=== PATIENT | female | born 1935 | race Caucasian/White ===

== ENCOUNTER 2017-04-10 02:10 | Observation (INO) ==
[2017-04-10] MEDS ORDERED: *HR* Promethazine 25 MG/ML VIAL IVP PRN (05:24)
[2017-04-10] MEDS ORDERED: Ondansetron 4 MG/2 ML VIAL IVP PRN (05:24)
[2017-04-10] MEDS ORDERED: MOM Conc 10 ML UD.LIQ PO PRN (05:24)
[2017-04-10] MEDS ORDERED: Naloxone 0.4 MG/ML INJ IVP PRN (05:24)
[2017-04-10] MEDS ORDERED: *HR* HYDROcodone/Acet 5/325 mg TABLET PO PRN (05:24)
[2017-04-10] MEDS ORDERED: Acetaminophen 325 MG TABLET PO PRN (05:24)
--- NOTE | 2017-04-10 05:38 | Internal Med History&Physical ---
Date of Encounter: 04/10/17 Time of Encounter: 05:00 Assessment and Plan (1) Chest pain Current visit: No Status: Acute will place the pt into Tele for observation reviewed EKG by myself..NSR, NO ST T changes, HR @ 68 So far negative trop will check serial trop Her CP seems to be atypical - mostly due to indigestion so will give her Prilosec however since pt is also high risk with all her previous cardiac history and family history will monitor her closely for next 24 hrs resumed home med ASA + Plavix + BB + ARBs Will give Nitro PRN Qualifiers: Chest pain type: unspecified Qualified Code(s): R07.9 - Chest pain, unspecified (2) Bronchopneumonia Current visit: No Status: Acute Reviewed CTA of chest results..showed bronchiolitis / pneumonia mostly bacterial she does have cough with yellowish expectoration will give her empirical abx Levaquin x 5 days Duoneb PRN (3) GERD (gastroesophageal reflux disease) Current visit: Yes Status: Acute started on PPI Qualifiers: Qualified Code(s): K21.9 - Gastro-esophageal reflux disease without esophagitis (4) CAD (coronary artery disease) Current visit: Yes Status: Chronic Resumed all home meds ASA + Plavix + Statin + B Vale + ARBs Qualifiers: Coronary Disease-Associated Artery/Lesion type: [place] artery [place] vs. transplanted heart: [place] heart Associated angina: without angina Qualified Code(s): I25.10 - Atherosclerotic heart disease of [place] coronary artery without angina pectoris (5) HTN (hypertension) Current visit: Yes Status: Acute Stable with home meds Qualifiers: Hypertension type: essential hypertension Qualified Code(s): I10 - Essential (primary) hypertension (6) HLD (hyperlipidemia) Current visit: Yes Status: Acute on statin Qualifiers: Hyperlipidemia type: unspecified Qualified Code(s): E78.5 - Hyperlipidemia , unspecified (7) Cholelithiasis Current visit: No Status: Chronic chronic.. No acute abdominal pain no further work up needed Qualifiers: Cholelithiasis location: gallbladder Cholecystitis presence: without cholecystitis Biliary obstruction: without biliary obstruction Qualified Code(s): K80.20 - Calculus of gallbladder without cholecystitis without obstruction Internal Medicine - H&P: HPI Chief complaint: Chest pain / Indigestion Admitted From: Emergency Dept Plans for Post Hospital Care: Home History of present illness: Ms. Jolley is a 81 year old female with known PMH of HTN, HLD, CAD s/p stents x 5, had normal LHC in 6 months ago who does f/u with [facility] Dr. Zhao as an out pt, now she presented to [facility] ER with some substernal and epigatsric discomfort , more like pressure and burning pain started last night. Her pain was 6/10 and non radiating. Pt denied any active chest pain now. She had CTA of Chest done in the ER which showed cluster of centrilobular nodules in the posterior aspect of Rt upper lobe suspicious for infectious bronchiolitis / broncho pneumonia. Past Med Surg Social Fam HX - Past Medical History Medical history: coronary artery disease, myocardial infarction Psychiatric history: no psych history - Past Surgical History Surgical History: , cataract - Social History Smoking Status: Never smoker Smokeless Tobacco Status: No Alcohol use: rarely Drug use: none - Family History Brother Living Status: Age at : 50 Cause of : [place] Hx Family Cardiac Disorders: Yes ([place]) Sister Living Status: Still Living Hx Family Cardiac Disorders: Yes Internal Medicine - H&P: Meds Aspirin 81 mg PO DAILY 11/11/15 [History] Carvedilol 6.25 mg PO BID 11/11/15 [History] Clopidogrel [Plavix] 75 mg PO DAILY 11/11/15 [History] Multivit-Min/Iron/Folic/Lutein [Centrum Silver Women Tablet] 1 tab PO DAILY 11/17 [History] Atorvastatin [Lipitor] 80 mg PO HS 04/09/17 [History] Isosorbide DInitrate [Isosorbide Dinitrate] 30 mg PO DAILY 04/09/17 [History] Losartan Potassium [Cozaar] 25 mg PO DAILY 04/09/17 [History] Magnesium Oxide [Magnesium] 400 mg PO DAILY 04/09/17 [History] 3 Allergy/AdvReac Type Severity Reaction Status Date / Time No Known Allergies Allergy Verified 11/11/15 08:23 All Systems PM: A 10-system review of systems was performed and is negative for pertinent findings except as documented above in the HPI. Review of systems: Reviewed all the systems, everything is benign except the systems and symptoms I mentioned in HPI - Constitutional Vitals: Temp Pulse Resp BP Pulse Ox 97.4 F L 64 14 178/84 97 04/10/17 04:33 04/10/17 04:33 04/10/17 04:33 04/10/17 04:33 04/10/17 04:33 General appearance: Present: A&O X 3, no acute distress, answers questions appropriately - Head Head exam: Present: atraumatic, normal inspection - Neck Neck exam general surgery: Present: supple - Respiratory Respiratory exam: Present: decreased breath sounds. Absent: rales, respiratory distress, rhonchi, wheezes - Cardiovascular Cardiovascular exam: Present: RRR, +S1, +S2. Absent: systolic murmur, tachycardia - GI/Abdominal GI/Abdominal exam: Present: normal bowel sounds, soft. Absent: rebound, rigid, tenderness - Extremities Exam Extremities exam: Absent: calf tenderness, pedal edema, tenderness - Back Exam Back exam: Absent: CVA tenderness (L), CVA tenderness (R) - Neurological Exam Neurological exam: Present: alert, oriented X3 - Psychiatric Psychiatric exam: Present: normal affect, normal mood
[2017-04-10 07:07] LABS: Chol/HDL Ratio 2.3 (0-4.9)
[2017-04-10] MEDS: Multivit/Ca/Min/Fe/FA 1 TAB TABLET PO SCH (09:24)
[2017-04-10] MEDS: Isosorbide MONOnitrate (24 HR) 30 MG TAB.ER.24H PO SCH (09:24)
[2017-04-10] MEDS: Levofloxacin 500 MG/100 ML 500 MG/100 ML BAG IVPB SCH (09:24)
[2017-04-10] MEDS: Aspirin 81 MG TAB.CHEW PO SCH (09:24)
[2017-04-10] MEDS: Magnesium Oxide 400 MG TABLET PO SCH (09:24)
[2017-04-10] MEDS: NABUMETONE TP PRN (15:40)
[2017-04-10] MEDS: LIDOCAINE TP PRN (15:40)
[2017-04-10] MEDS: GABAPENTIN TP PRN (15:40)
[2017-04-10] MEDS: PRILOCAINE TP PRN (15:40)
[2017-04-11 03:38] LABS: Hematocrit 35.6 % (35.3-44.9); Hemoglobin 11.6 g/dL (11.5-15.4); Mean Corpuscular HGB Conc 32.6 g/dL (31.6-35.5); Mean Corpuscular Hemoglobin 31.9 pg (28.0-33.3); Mean Corpuscular Volume 97.8 fL (83.0-100.0); Mean Platelet Volume 11.4 fL (9.4-12.4); Platelet Count 163 K/mcL (140-400); Red Blood Count 3.64 M/mcL (3.82-4.97); Red Cell Distribution Width 12.5 % (11.5-14.5)
[2017-04-11 03:58] LABS: BUN/Creatinine Ratio 18 (6-26); Blood Urea Nitrogen 18 mg/dL (8-23); Calcium 9.2 mg/dL (8.6-10.3); Carbon Dioxide 27 mEq/L (23-29); Chloride 107 mEq/L (98-107); Glucose 101 mg/dL (70-105); Magnesium 2.2 mg/dL (1.6-2.6); Osmolality,Calculated 292 (280-300); Potassium 4.3 mEq/L (3.5-5.1); Sodium 140 mEq/L (136-145); eGFR For African Americans > 60 (> 60); eGFR For Non-African Americans 54 (> 60)
[2017-04-11] MEDS: Multivit/Ca/Min/Fe/FA 1 TAB TABLET PO SCH (08:04)
[2017-04-11] MEDS: Isosorbide MONOnitrate (24 HR) 30 MG TAB.ER.24H PO SCH (08:04)
[2017-04-11] MEDS: Aspirin 81 MG TAB.CHEW PO SCH (08:04)
[2017-04-11] MEDS: Magnesium Oxide 400 MG TABLET PO SCH (08:04)
--- NOTE | 2017-04-11 11:44 | Cardiology Consult Note ---
Date of Encounter: 04/11/17 Time of Encounter: 11:44 Assessment and Plan (1) Chest pain Current Visit: Yes Status: Acute Atypical chest pain. Current work-up is negative. Trop negative x3. EKG shows NSR. Recommend proceeding with stress test as recommended in the out-pt setting. Last [facility] 2016 in [place] showed patent LAD stent and mRCA stent. There was a 40- 50% in- stent stenosis in the mRCA. TTE 03/07/16- EF 60%. No significant valvular disease. Low level stress ordered for am. Increase imdur. No medications after midnight. Qualifiers: Chest pain type: unspecified Qualified Code(s): R07.9 - Chest pain, unspecified (2) CAD (coronary artery disease) Current Visit: Yes Status: Chronic H/o 5 UT and previous PCI per patient. Continue asa, statin, bb, plavix, and imdur. Qualifiers: Coronary Disease-Associated Artery/Lesion type: [place] artery [place] vs. transplanted heart: tribal heart Associated angina: without angina Qualified Code(s): I25.10 - Atherosclerotic heart disease of tribal coronary artery without angina pectoris (3) PNA (pneumonia) Current Visit: Yes Status: Acute Hospitalist following. Started on levaquin. Qualifiers: Pneumonia type: due to unspecified organism Laterality: right Lung location: upper lobe of lung Qualified Code(s): J18.1 - Lobar pneumonia, unspecified organism Discussion w patient/family: The assessment and plan as outlined above was discussed with the patient and/or family members who expressed understanding and agreement. All questions were answered. Thank you for involving us in the care of your patient. Please call with any questions. History of Present Illness Consult date: 04/11/17 Requesting physician: Terrance Michel Consult reason: Chest pain Chief complaint: Chest pain History of present illness: Ms. Jolley is a 81 year old female with a past medical history of multiple UT , previous PCI, HLD, HTN, and takostubo CMP who presents with the c/o recurrent mid-epigastric pain and chest pain.She states that the pain is not like her previous UT but she has felt indigestion prior to a UT before. Symptoms occur at rest. Denies using her SL NTG spray at home. She was given 4 sprays in the ER with relief of her pain. She also c/o SOB and cough. C/o recent cold like symptoms during a recent travel to [place]. 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 She was waiting for stress test to be scheduled. Cardiac work-up included troponin found to be negative x3 and EKG shows NSR with no ST changes. CT of the chest showed changes suggesting bronchiolitis and PNA. SHe was started on levaquin. Past Med Surg Social Fam HX - Past Medical History Medical history: cardiomyopathy, coronary artery disease, myocardial infarction Psychiatric history: no psych history - Past Surgical History Surgical History: , cataract - Social History Smoking Status: Never smoker Smokeless Tobacco Status: No Alcohol use: rarely Drug use: none - Family History Brother Living Status: Age at : 50 Cause of : [place] Hx Family Cardiac Disorders: Yes ([place]) Sister Living Status: Still Living Hx Family Cardiac Disorders: Yes Medications and Allergies Aspirin 81 mg PO DAILY 11/11/15 [History] Carvedilol 6.25 mg PO BID 11/11/15 [History] Clopidogrel [Plavix] 75 mg PO DAILY 11/11/15 [History] Multivit-Min/Iron/Folic/Lutein [Centrum Silver Women Tablet] 1 tab PO DAILY 11/17 [History] Atorvastatin [Lipitor] 80 mg PO HS 04/09/17 [History] Isosorbide DInitrate [Isosorbide Dinitrate] 30 mg PO DAILY 04/09/17 [History] Losartan Potassium [Cozaar] 25 mg PO DAILY 04/09/17 [History] Magnesium Oxide [Magnesium] 400 mg PO DAILY 04/09/17 [History] Ferrous Sulfate [Ferrous Sulfate] 1 tab PO BID 04/10/17 [History] 3 Allergy/AdvReac Type Severity Reaction Status Date / Time No Known Allergies Allergy Verified 11/11/15 08:23 All Systems Review: A 10-system review of systems was performed and is negative for pertinent findings except as documented above in the HPI. Physical Examination Vital Signs, Last 4 Hours Pulse Ox 04/11/17 08:12 95 General: Conversant, No Apparent Distress HEENT: Atraumatic, Normocephaly, Mucus Membranes Moist Neck: No JVD, Normal carotid pulses Cardiac: Reg Rate and Rhythm, Normal S1 and S2, No Murmur Lungs: Normal Breath Sounds, No Wheeze, Rales, Rhonchi Neuro: Alert and responsive, No focal deficits noted Abdomen: Soft, Non-Tender Skin: No rashes noted on visualized skin Musculoskeletal: No Chest Wall Tenderness Extremities: No Clubbing, No Cyanosis, No Edema, Normal Pulses Results 04/11/17 03:11 04/11/17 03:11 Lab Results 04/10/17 04/11/17 04/11/17 11:18 03:11 03:11 WBC 5.4 Hgb 11.6 Hct 35.6 Plt Count 163 Sodium 140 Potassium 4.3 Chloride 107 Carbon Dioxide 27 BUN 18 Creatinine 0.99 Glucose 101 Calcium 9.2 Magnesium 2.2 Troponin I < 0.03 - Imaging and Cardiology Echo: report reviewed - EKG Interpretation EKG results cardiology: personally reviewed Consult Discharge Plan - Plan Referrals: Alton Atkins MD [Primary Care Provider] -
[2017-04-11] MEDS ORDERED: Isosorbide MONOnitrate (24 HR) 30 MG TAB.ER.24H PO ONE (12:10)
--- NOTE | 2017-04-11 12:28 | Internal Med Progress Note ---
Date of Encounter: 04/11/17 Time of Encounter: 09:55 - Assessment and plan (1) PNA (pneumonia) Current Visit: Yes Status: Suspected Assessment and plan: Pt with community acquired pneumonia found on CT. Relates a recent upper respiratory infection. Continue IV abx for now and anticipate d/c on PO Qualifiers: Pneumonia type: due to Pneumococcus Laterality: right Lung location: upper lobe of lung Qualified Code(s): J13 - Pneumonia due to Streptococcus pneumoniae (2) Chest pain Current Visit: Yes Status: Acute Assessment and plan: Pt with atypical chest pain. Has significant cardiac history and is concerned this is cardiac related. Will ask for inpatient cardiology consult today. Qualifiers: Chest pain type: other chest pain Qualified Code(s): R07.89 - Other chest pain; R07.8 - Other chest pain (3) HTN (hypertension) Current Visit: Yes Status: Chronic Assessment and plan: Continue home meds. Qualifiers: Hypertension type: essential hypertension Qualified Code(s): I10 - Essential (primary) hypertension (4) CAD (coronary artery disease) Current Visit: Yes Status: Chronic Assessment and plan: Chronic issue Qualifiers: Coronary Disease-Associated Artery/Lesion type: [place] artery [place] vs. transplanted heart: [place] heart Associated angina: without angina Qualified Code(s): I25.10 - Atherosclerotic heart disease of [place] coronary artery without angina pectoris (5) HLD (hyperlipidemia) Current Visit: Yes Status: Chronic Assessment and plan: Chronic issue Qualifiers: Hyperlipidemia type: mixed hyperlipidemia Qualified Code(s): E78.2 - Mixed hyperlipidemia (6) GERD (gastroesophageal reflux disease) Current Visit: Yes Status: Chronic Assessment and plan: Chronic issue Qualifiers: Esophagitis presence: without esophagitis Qualified Code(s): K21.9 - Gastro -esophageal reflux disease without esophagitis (7) Cholelithiasis without cholecystitis Current Visit: Yes Status: Chronic - Subjective Interval history: Ms Jolley is currently in observation for atypical chest pain and pneumonia. Ms Jolley has not had any further indigestion or chest discomfort. She is having some different sensation in L arm. No fever or chills. No dyspnea. - Constitutional Vitals: Temp Pulse Resp BP Pulse Ox 98.3 F 75 16 108/72 94 04/11/17 11:54 04/11/17 11:54 04/11/17 11:54 04/11/17 11:54 04/11/17 11:54 General appearance: Present: A&O X 3, answers questions appropriately - Head Head exam: Present: atraumatic, normocephalic - Eye Eye exam: Present: EOMI, conjuntiva pink - ENT ENT exam: Present: mucous membranes dry - Respiratory Respiratory exam: Present: CTAB. Absent: rales, rhonchi, wheezes - Cardiovascular Cardiovascular exam: Present: RRR. Absent: systolic murmur, tachycardia - GI/Abdominal GI/Abdominal exam: Present: soft. Absent: tenderness - Extremities Exam Extremities exam: Present: warm. Absent: tenderness - Neurological Exam Neurological exam: Present: alert, oriented X3, no focal deficits - Skin Skin exam: Present: dry, warm. Absent: rash Internal Medicine: Result - Labs CBC & Chem 7: 04/11/17 03:11 04/11/17 03:11 Labs: Short CBC 04/11/17 Range/Units 03:11 WBC 5.4 (4.3-11.1) K/mcL Hgb 11.6 (11.5-15.4) g/dL Hct 35.6 (35.3-44.9) % Plt Count 163 (140-400) K/mcL BMP 04/11/17 03:11 Sodium 140 Potassium 4.3 Chloride 107 Carbon Dioxide 27 BUN 18 Creatinine 0.99 Glucose 101 Calcium 9.2 Consult Discharge Plan - Plan Referrals: Alton Atkins MD [Primary Care Provider] -
[2017-04-11] MEDS: NABUMETONE TP PRN ×2 (13:41→20:36)
[2017-04-11] MEDS: PRILOCAINE TP PRN ×2 (13:41→20:36)
[2017-04-11] MEDS: GABAPENTIN TP PRN ×2 (13:41→20:36)
[2017-04-11] MEDS: LIDOCAINE TP PRN ×2 (13:41→20:36)
[2017-04-11] MEDS: *HR* Heparin 5,000 UNIT/ML VIAL SQ SCH (17:45)
[2017-04-11] MEDS: Nitroglycerin 0.4 MG TAB.SUBL SL PRN ×2 (23:38→23:47)
[2017-04-11] MEDS ORDERED: Mag Hydrox/Al Hydrox/Simeth 30 ML UDC PO ONE (23:54)
[2017-04-12] MEDS ORDERED: Nitroglycerin 1 INCH/GM PACKET TP PRN (00:05)
[2017-04-12] MEDS ORDERED: Regadenoson 0.4 MG/5 ML SYRINGE IVP ONE (06:24)
[2017-04-12] MEDS: *HR* Heparin 5,000 UNIT/ML VIAL SQ SCH (07:02)
[2017-04-12] MEDS: PRILOCAINE TP PRN (07:21)
[2017-04-12] MEDS: NABUMETONE TP PRN (07:21)
[2017-04-12] MEDS: GABAPENTIN TP PRN (07:21)
[2017-04-12] MEDS: LIDOCAINE TP PRN (07:21)
[2017-04-12] MEDS ORDERED: Isosorbide MONOnitrate (24 HR) 30 MG TAB.ER.24H PO SCH (09:00)
--- NOTE | 2017-04-12 10:10 | Electrocardiograph Report ---
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
[2017-04-12] MEDS: Levofloxacin 500 MG/100 ML 500 MG/100 ML BAG IVPB SCH (11:23)
[2017-04-12] MEDS: Multivit/Ca/Min/Fe/FA 1 TAB TABLET PO SCH (11:41)
[2017-04-12] MEDS: Magnesium Oxide 400 MG TABLET PO SCH (11:41)
[2017-04-12] MEDS: Aspirin 81 MG TAB.CHEW PO SCH (11:41)
[2017-04-12 14:33] VITALS: BP 109/67
--- NOTE | 2017-04-12 15:05 | Cardiology Progress Note ---
Date of Encounter: 04/12/17 Time of Encounter: 15:10 Assessment and Plan (1) Chest pain Current Visit: Yes Status: Resolved Atypical chest pain. Trop negative x3. EKG shows NSR. Last [facility] 2015 in [place] showed patent LAD stent and mRCA stent. There was a 40- 50% in- stent stenosis in the mRCA. TTE 03/07/16- EF 60%. No significant valvular disease. Stress test negative for ischemia or infarct, Imdur increased. Recommend PPI. Continue medical management. Out-pt f/u will be coordinated by [facility]. Qualifiers: Chest pain type: other chest pain Qualified Code(s): R07.89 - Other chest pain; R07.8 - Other chest pain (2) CAD (coronary artery disease) Current Visit: Yes Status: Chronic H/o 5 [place] and previous PCI per patient. Continue asa, statin, bb, plavix, and imdur. Qualifiers: Coronary Disease-Associated Artery/Lesion type: [place] artery [place] vs. transplanted heart: [place] heart Associated angina: without angina Qualified Code(s): I25.10 - Atherosclerotic heart disease of [place] coronary artery without angina pectoris (3) PNA (pneumonia) Current Visit: Yes Status: Suspected Hospitalist following. Started on levaquin. Qualifiers: Pneumonia type: due to Pneumococcus Laterality: right Lung location: upper lobe of lung Qualified Code(s): J13 - Pneumonia due to Streptococcus pneumoniae Discussion w patient/family: The assessment and plan as outlined above was discussed with the patient and/or family members who expressed understanding and agreement. All questions were answered. Thank you for involving us in the care of your patient. Please call with any questions. Subjective Principal diagnosis: Chest pain Interval history: No recurrent chest pain. Objective Vital Signs, Last 4 Hours Temp Pulse Resp BP Pulse Ox 04/12/17 14:32 97.8 F 79 16 109/67 97 04/12/17 11:26 98.0 F 73 16 127/83 98 General: Conversant, No Apparent Distress HEENT: Atraumatic, Normocephaly, Mucus Membranes Moist Neck: No JVD, Normal carotid pulses Cardiac: Reg Rate and Rhythm, Normal S1 and S2, No Murmur Lungs: Normal Breath Sounds, No Wheeze, Rales, Rhonchi Neuro: Alert and responsive, No focal deficits noted Abdomen: Soft, Non-Tender Skin: No rashes noted on visualized skin Musculoskeletal: No Chest Wall Tenderness Extremities: No Clubbing, No Cyanosis, No Edema, Normal Pulses Results 04/11/17 03:11 04/11/17 03:11 Lab Results 04/12/17 04/12/17 04/12/17 00:00 05:44 12:11 Troponin I < 0.03 < 0.03 < 0.03 - Imaging and Cardiology Stress Test: report reviewed - EKG Interpretation EKG results cardiology: personally reviewed Consult Discharge Plan - Plan Additional Instructions: Take medications as prescribed. Go to scheduled follow-up appointment. Go to ED if symptoms return. Activity as tolerated. Referrals: Alton Atkins MD [Primary Care Provider] - (Web request made, office will call you with appt) Prescriptions: Isosorbide MONOnitrate (24 HR) [Imdur] 60 mg PO DAILY #30 tab.er.24h levoFLOXacin [Levaquin] 500 mg PO DAILY #3 tablet
--- NOTE | 2017-04-12 15:17 | Discharge Summary ---
Date of Encounter: 04/12/17 Time of Encounter: 15:14 - Discharge Diagnosis (1) PNA (pneumonia) Priority: Primary Status: Suspected Qualifiers: Pneumonia type: due to Pneumococcus Laterality: right Lung location: upper lobe of lung Qualified Code(s): J13 - Pneumonia due to Streptococcus pneumoniae (2) Chest pain Priority: Secondary Status: Resolved Qualifiers: Chest pain type: other chest pain Qualified Code(s): R07.89 - Other chest pain; R07.8 - Other chest pain (3) HTN (hypertension) Priority: Secondary Status: Chronic Qualifiers: Hypertension type: essential hypertension Qualified Code(s): I10 - Essential (primary) hypertension (4) CAD (coronary artery disease) Priority: Secondary Status: Chronic Qualifiers: Coronary Disease-Associated Artery/Lesion type: [place] artery [place] vs. transplanted heart: [place] heart Associated angina: without angina Qualified Code(s): I25.10 - Atherosclerotic heart disease of [place] coronary artery without angina pectoris (5) HLD (hyperlipidemia) Priority: Secondary Status: Chronic Qualifiers: Hyperlipidemia type: mixed hyperlipidemia Qualified Code(s): E78.2 - Mixed hyperlipidemia (6) GERD (gastroesophageal reflux disease) Priority: Secondary Status: Chronic Qualifiers: Esophagitis presence: without esophagitis Qualified Code(s): K21.9 - Gastro -esophageal reflux disease without esophagitis (7) Cholelithiasis without cholecystitis Priority: Secondary Status: Chronic - Discharge Medications Prescriptions: Isosorbide MONOnitrate (24 HR) [Imdur] 60 mg PO DAILY #30 tab.er.24h levoFLOXacin [Levaquin] 500 mg PO DAILY #3 tablet Home Medications: Aspirin 81 mg PO DAILY 11/11/15 [History] Carvedilol 6.25 mg PO BID 11/11/15 [History] Clopidogrel [Plavix] 75 mg PO DAILY 11/11/15 [History] Multivit-Min/Iron/Folic/Lutein [Centrum Silver Women Tablet] 1 tab PO DAILY 11/17 [History] Atorvastatin [Lipitor] 80 mg PO HS 04/09/17 [History] Losartan Potassium [Cozaar] 25 mg PO DAILY 04/09/17 [History] Magnesium Oxide [Magnesium] 400 mg PO DAILY 04/09/17 [History] Ferrous Sulfate [Ferrous Sulfate] 1 tab PO BID 04/10/17 [History] Isosorbide MONOnitrate (24 HR) [Imdur] 60 mg PO DAILY #30 tab.er.24h 04/12/17 [ Rx] Patient Taking Own Medication 4 each TP QID PRN each 04/12/17 [Rx] levoFLOXacin [Levaquin] 500 mg PO DAILY #3 tablet 04/12/17 [Rx] Allergies/Adverse Reactions: 3 Allergy/AdvReac Type Severity Reaction Status Date / Time No Known Allergies Allergy Verified 11/11/15 08:23 Procedures/tests Complete & Pending: Procedures Performed prior 72 hours Category Date Time Status NM abhijit perf SPECT multi [NM] Routine Exams 04/11/17 11:43 Taken ECG 12 lead ECG [ECG] Stat Y 04/11/17 23:43 Completed EKG [ECG 12 lead ECG] [ECG] AM 0600 Y 04/12/17 06:00 Ordered SP pharm nuclear stress Routine Y 04/11/17 11:42 Completed Date of admission: 04/10/17 04:14 Primary care physician: Alton Atkins, Consults: 04/11/17 10:46 Consult to Cardiology [CONS] Routine Comment: Consulting Provider: Cardiology Idania Reason for Consult: "indigestion" similar to prior cardiac events. Patient concerned. Call Completed: Yes Discharging clinician: Terrance Michel Anticipated date of discharge: 04/12/17 - Patient Status Disposition: Home, Self-Care Condition: Good Functional capacity at discharge: independent ambulation Overall status at discharge: patient is progressing back to baseline - Discharge Instructions Follow Up With: Alton Atkins MD [Primary Care Provider] - (Web request made, office will call you with appt) Additional Instructions: Take medications as prescribed. Go to scheduled follow-up appointment. Go to ED if symptoms return. Activity as tolerated. - Diet and Activity Activity: increase activity as tolerated Diet: advance to your usual diet Hospital course: Ms. Jolley is a 81 year old female with hx of CAD presented to ED with complaints of indigestion. She has had previous cardiac events and this was the same symptom. She was placed in observation for further evaluation and treatment. There was also concern for pneumonia as well. Ms Jolley was placed in observation on [place]. She was placed on IV abx for pneumonia. Her troponins were negative and she continued to have concern about her symptoms. She was evaluated by cardiology and stress test was ordered. This was negative for ischemia. Today she feels well. She is afebrile with stable vitals and is ready for discharge home. - Time Spent with Patient Total time spent providing and/or coordinating discharge services: 39min - Constitutional Vitals: Temp Pulse Resp BP Pulse Ox 97.8 F 79 16 109/67 97 04/12/17 14:32 04/12/17 14:32 04/12/17 14:32 04/12/17 14:32 04/12/17 14:32 General appearance: Present: A&O X 3, answers questions appropriately - Head Head exam: Present: normocephalic - Eye Eye exam: Present: EOMI, conjuntiva pink - ENT ENT exam: Present: mucous membranes moist - Respiratory Respiratory exam: Present: CTAB. Absent: rhonchi, wheezes - Cardiovascular Cardiovascular exam: Present: RRR. Absent: tachycardia - Extremities Exam Extremities exam: Present: warm - Neurological Exam Neurological exam: Present: alert, oriented X3 - Skin Skin exam: Present: warm. Absent: rash
== END 2017-04-12 16:13 | disposition home or self-care (01) ==
LOC: 3NENU → SUATTDRO 04:14
PROVIDERS: ADMIT Internal Medicine; ATTEND Internal Medicine

== ENCOUNTER 2021-08-10 15:11 | Inpatient (IN) ==
[2021-08-10] MEDS ORDERED: Ondansetron 4 MG/2 ML VIAL IVP PRN (17:49)
[2021-08-10] MEDS ORDERED: Naloxone 0.4 MG/ML INJ IVP PRN (17:49)
[2021-08-10] MEDS: 0.9 % Sodium Chloride 1,000 ML IVC SCH (18:36)
[2021-08-10] MEDS: *HR* Heparin 5,000 UNIT/ML VIAL SQ SCH (18:36)
[2021-08-10] MEDS: Ampicillin/Sulbactam 3,000 MG in 0.9 % Sodium Chloride Mini Bag 100 ML IVPB SCH ×2 (18:36→23:11)
[2021-08-11] MEDS: Ampicillin/Sulbactam 3,000 MG in 0.9 % Sodium Chloride Mini Bag 100 ML IVPB SCH ×3 (05:15→18:26)
[2021-08-11] MEDS: *HR* Heparin 5,000 UNIT/ML VIAL SQ SCH ×2 (05:15→18:25)
[2021-08-11 06:04] LABS: Basophils % 0.1 %; Hematocrit 36.7 % (35.3-44.9); Hemoglobin 11.9 g/dL (11.5-15.4); Immature Granulocytes % 1.5 % (0-4); Immature Platelets 7.1 % (1.1-6.1); Lymphocytes # 0.7 K/mcL (0.6-4.6); Lymphocytes % 4.1 %; Mean Corpuscular HGB Conc 32.4 g/dL (31.6-35.5); Mean Corpuscular Hemoglobin 32.3 pg (28.0-33.3); Mean Corpuscular Volume 99.7 fL (83.0-100.0); Mean Platelet Volume 11.7 fL (9.4-12.4); Monocytes # 1.3 K/mcL (0.0-1.3); Monocytes % 7.2 %; Neutrophils # 15.6 K/mcL (1.6-8.9); Platelet Count 126 K/mcL (140-400); Red Blood Count 3.68 M/mcL (3.82-4.97); Red Cell Distribution Width 12.2 % (11.5-14.5); Segmented Neutrophils % 87.1 %; White Blood Count 17.9 K/mcL (4.3-11.1)
[2021-08-11 06:07] LABS: INR 1.3
[2021-08-11 06:19] LABS: Alanine Aminotransferase 9 Units/L (7-52); Albumin 3.5 g/dL (3.5-5.7); Albumin/Globulin Ratio 1.4 (1.1-2.2); Alkaline Phosphatase 50 Units/L (34-104); Aspartate Amino Transferase 20 Units/L (13-39); BUN/Creatinine Ratio 22 (6-26); Bilirubin,Direct 0.2 mg/dL (0.0-0.2); Bilirubin,Indirect 0.8 mg/dL (0.0-1.0); Blood Urea Nitrogen 22 mg/dL (8-23); Calcium 7.9 mg/dL (8.6-10.3); Carbon Dioxide 26 mEq/L (23-29); Chloride 104 mEq/L (98-107); Globulin 2.5 g/dL (2.4-3.5); Glucose 110 mg/dL (70-105); Osmolality,Calculated 288 (280-300); Sodium 137 mEq/L (136-145); eGFR For African Americans > 60 (> 60); eGFR For Non-African Americans 54 (> 60)
[2021-08-11] MEDS ORDERED: *HR* Propofol 200 MG/20 ML VIAL IVP ONE (07:24)
[2021-08-11] MEDS ORDERED: *HR* FentaNYL (PF) 100 MCG/2 ML VIAL ONE ×2 (07:24→10:10)
[2021-08-11] MEDS ORDERED: Iopamidol - 300 50 ML VIAL ONE (07:31)
[2021-08-11] MEDS ORDERED: Aspirin 81 MG TAB.CHEW ONE (08:16)
[2021-08-11] MEDS ORDERED: Acetaminophen IV 1,000 MG/100 ML BAG IVPB ONE (08:59)
[2021-08-11] MEDS ORDERED: Aspirin 81 MG TAB.CHEW PO SCH (09:00)
[2021-08-11] MEDS ORDERED: *HR* Rocuronium Bromide 50 MG/5 ML VIAL ONE (09:30)
[2021-08-11] MEDS ORDERED: Ondansetron 4 MG/2 ML VIAL ONE (09:30)
[2021-08-11] MEDS ORDERED: Lidocaine -MPF 2% 2 ML VIAL ONE (09:30)
[2021-08-11] MEDS ORDERED: Sugammadex Sodium 200 MG/2 ML VIAL IV ONE (10:05)
[2021-08-11] MEDS ORDERED: *HR* FentaNYL (PF) 100 MCG/2 ML VIAL IVP PRN (10:07)
[2021-08-11] MEDS: 0.9 % Sodium Chloride 1,000 ML IVC SCH (13:17)
[2021-08-11] MEDS ORDERED: 0.9 % Sodium Chloride 1,000 ML IVC SCH (18:54)
[2021-08-11] MEDS ORDERED: Nitroglycerin 0.4 MG TAB.SUBL SL PRN (18:54)
[2021-08-11] MEDS ORDERED: Ondansetron 4 MG/2 ML VIAL IVP PRN (18:54)
[2021-08-11] MEDS ORDERED: Naloxone 0.4 MG/ML INJ IVP PRN (18:54)
[2021-08-12] MEDS: Ampicillin/Sulbactam 3,000 MG in 0.9 % Sodium Chloride Mini Bag 100 ML IVPB SCH ×5 (01:03→23:22)
[2021-08-12 02:14] LABS: Hemoglobin 9.6 g/dL (11.5-15.4); Immature Platelets 8.9 % (1.1-6.1); Mean Corpuscular HGB Conc 33.1 g/dL (31.6-35.5); Mean Corpuscular Hemoglobin 32.9 pg (28.0-33.3); Mean Corpuscular Volume 99.3 fL (83.0-100.0); Mean Platelet Volume 12.3 fL (9.4-12.4); Red Blood Count 2.92 M/mcL (3.82-4.97); White Blood Count 9.9 K/mcL (4.3-11.1)
[2021-08-12 02:41] LABS: BUN/Creatinine Ratio 28 (6-26); Blood Urea Nitrogen 21 mg/dL (8-23); Calcium 7.3 mg/dL (8.6-10.3); Carbon Dioxide 26 mEq/L (23-29); Chloride 106 mEq/L (98-107); Glucose 132 mg/dL (70-105); Osmolality,Calculated 289 (280-300); Sodium 137 mEq/L (136-145); eGFR For African Americans > 60 (> 60); eGFR For Non-African Americans > 60 (> 60)
[2021-08-12] MEDS: *HR* Heparin 5,000 UNIT/ML VIAL SQ SCH ×2 (06:07→18:05)
[2021-08-12] MEDS: Aspirin 81 MG TAB.CHEW PO SCH (08:20)
[2021-08-12] MEDS ORDERED: Aspirin 81 MG TAB.CHEW PO SCH (09:00)
[2021-08-13 01:45] LABS: Hemoglobin 9.8 g/dL (11.5-15.4); Red Cell Distribution Width 12.1 % (11.5-14.5)
[2021-08-13 01:46] LABS: Immature Platelets 7.3 % (1.1-6.1); Mean Corpuscular HGB Conc 33.8 g/dL (31.6-35.5); Mean Corpuscular Hemoglobin 33.3 pg (28.0-33.3); Mean Corpuscular Volume 98.6 fL (83.0-100.0); Mean Platelet Volume 11.8 fL (9.4-12.4); Red Blood Count 2.94 M/mcL (3.82-4.97); White Blood Count 7.5 K/mcL (4.3-11.1)
[2021-08-13 02:08] LABS: BUN/Creatinine Ratio 26 (6-26); Blood Urea Nitrogen 22 mg/dL (8-23); Calcium 7.6 mg/dL (8.6-10.3); Carbon Dioxide 27 mEq/L (23-29); Chloride 107 mEq/L (98-107); Glucose 113 mg/dL (70-105); Osmolality,Calculated 290 (280-300); Sodium 138 mEq/L (136-145); eGFR For African Americans > 60 (> 60); eGFR For Non-African Americans > 60 (> 60)
[2021-08-13] MEDS: *HR* Heparin 5,000 UNIT/ML VIAL SQ SCH ×2 (05:43→16:14)
[2021-08-13] MEDS: Ampicillin/Sulbactam 3,000 MG in 0.9 % Sodium Chloride Mini Bag 100 ML IVPB SCH ×2 (05:43→14:40)
[2021-08-13] MEDS: Aspirin 81 MG TAB.CHEW PO SCH (07:49)
[2021-08-14] MEDS: *HR* Heparin 5,000 UNIT/ML VIAL SQ SCH ×2 (05:36→17:25)
[2021-08-14] MEDS: Aspirin 81 MG TAB.CHEW PO SCH (07:30)
[2021-08-15] MEDS: *HR* Heparin 5,000 UNIT/ML VIAL SQ SCH (06:13)
[2021-08-15 07:28] VITALS: BP 176/83; PULSE 91; TEMP 98.1; O2SAT 94
[2021-08-15] MEDS: Aspirin 81 MG TAB.CHEW PO SCH (07:40)
== END 2021-08-15 11:45 | disposition home health service (06) | DRG 854 ==
LOC: 3ANU → SUATTDRO 17:24
PROVIDERS: ADMIT Hospitalist; ATTEND Internal Medicine